=== PATIENT | male | born 1960 | race Caucasian/White ===

== ENCOUNTER 2017-10-16 14:46 | Emergency (ER) | payer OTHER ==
--- NOTE | 2017-10-16 19:26 | Emergency Department Report ---
ED Back Pain/Injury HPI - General Chief Complaint: Back Pain/Injury Stated Complaint: BACK PAIN Time Seen by Provider: 10/16/17 19:22 Source: patient Limitations: No Limitations - History of Present Illness Initial Comments: 57-year-old male comes to the emergency room complaining of back pain with a history of back pain with infusion. Patient reports that he is out of his Vicodin. Patient reports that he recently moved from [place] and has not established care here in [place]. She reports that he is on metformin amlodipine aspirin multivitamin. Patient a past medical history of DJD with fusion hypertension diabetes. MD Complaint: back pain Similar Symptoms Previously: Yes Severity scale (0 -10): 10 Quality: sharp, aching Consistency: intermittent Improves With: supine, sitting upright Worsens With: movement Associated Symptoms: denies: numbness, difficulty urinating, incontinence, fever /chills - Related Data Previous Rx's Medication Instructions Recorded Last Taken Type HYDROcodone/ACETAMINOPHEN [Vicodin 1 tab PO Q6HR PRN #12 tablet 10/16/17 Unknown Rx HP 10-300 mg TAB] Allergies Allergy/AdvReac Type Severity Reaction Status Date / Time No Known Allergies Allergy Unverified 10/16/17 15:36 ED Review of Systems ROS: Stated complaint: BACK PAIN Other details as noted in HPI Comment: All other systems reviewed and negative Genitourinary: denies: dysuria, frequency, hematuria Musculoskeletal: back pain ED Past Medical Hx - Past Medical History Previous Medical History?: Yes Hx Hypertension: Yes Hx Diabetes: Yes Additional medical history: DJD, HTN, - Surgical History Past Surgical History?: Yes Additional Surgical History: BACK SURGERY WITH FUSION, RIGHT SHOULDER , LEFT KNEE ARTHROSCOPY, RIGHT GREAT TOE - Social History Smoking Status: Current Every Day Smoker Substance Use Type: Marijuana, Prescribed - Medications Home Medications: Home Medications Medication Instructions Recorded Confirmed Last Taken Type HYDROcodone/ACETAMINOPHEN [Vicodin 1 tab PO Q6HR PRN #12 tablet 10/16/17 Unknown Rx HP 10-300 mg TAB] ED Physical Exam - General Limitations: No Limitations General appearance: alert, in no apparent distress - Head Head exam: Present: atraumatic, normocephalic - ENT ENT exam: Present: mucous membranes moist - Extremities Exam Extremities exam: Present: normal inspection, full ROM - Back Exam Back exam: Present: full ROM, other (midline scar on the vertebral to lower). Absent: tenderness, CVA tenderness (R), CVA tenderness (L), muscle spasm - Neurological Exam Neurological exam: Present: alert, oriented X3 - Psychiatric Psychiatric exam: Present: normal affect, normal mood - Skin Skin exam: Present: warm, dry, intact, normal color. Absent: rash ED Course Vital Signs 10/16/17 15:36 Temperature 98.7 F Pulse Rate 68 Respiratory 20 Rate Blood Pressure 143/47 O2 Sat by Pulse 98 Oximetry ED Medical Decision Making - Medical Decision Making He has been evaluated by this provider fast track. I discussed the patient can give him a few pills of Vicodin and he needs to follow-up with pain management as well as primary care. Patient verbalized understanding. Critical care attestation.: If time is entered above; I have spent that time in minutes in the direct care of this critically ill patient, excluding procedure time. ED Disposition Clinical Impression: Chronic back pain greater than 3 months duration Disposition: DC- TO HOME OR SELFCARE Is pt being admited?: No Does the pt Need Aspirin: No Condition: Stable Instructions: Chronic Back Pain (ED) Additional Instructions: Please take pain medication as prescribed. Please follow-up with pain management and primary care. As emergency room is not the place to treat chronic pain. I have listed several below. Prescriptions: HYDROcodone/ACETAMINOPHEN [Vicodin HP 10-300 mg TAB] 1 tab PO Q6HR PRN #12 tablet PRN Reason: Pain Referrals: PRIMARY CARE [Primary Care Provider] - 3-5 Days [facility] [Provider Group] - 3-5 Days [facility]ARE, [facility] [Provider Group] - 3-5 Days
[2017-10-16 19:43] VITALS: BP 138/59
== END 2017-10-16 19:32 | disposition home or self-care (01) ==
LOC: ED 14:46
DX: G89.29 Other chronic pain (principal); M54.9 Dorsalgia, unspecified; I10 Essential (primary) hypertension; E11.9 Type 2 diabetes mellitus without complications; F17.200 Nicotine dependence, unspecified, uncomplicated; F12.10 Cannabis abuse, uncomplicated
CPT/HCPCS: 99282